=== PATIENT | female | born 1985 | race Caucasian/White ===

== ENCOUNTER 2019-08-02 10:23 | Observation (INO) | payer OTHER, SELFPAY ==
[2019-08-02] VITALS (8 sets, daily range): BP systolic 98–113; BP diastolic 59–71; PULSE 80–104; RESP 16; TEMP 36.2; O2SAT 99
[2019-08-02 11:52] LABS: Add Urine Microscopic? YES; Appearance Urine Cloudy (Clear); Bacteria Urine Trace /hpf; Bilirubin Urine Negative (Negative); Blood Urine 2+ (Negative); Color Urine Yellow (Yellow); Glucose Urine UA Negative (Negative); Ketones Urine Negative (Negative); Leukocyte Esterase Ur 2+ LEU/UL (NEGATIVE); Mucus Urine Rare /lpf; Nitrate Urine Negative (Negative); Protein Urine Negative (Negative); Specific Grav Ur 1.021 (1.001-1.035); Squamous Epithelial Cell Urine Many /hpf (Few)
[2019-08-02] MEDS: LIDOCAINE HCL 1% LOCAL INJ 10 ML VIAL INFILTRATE (12:28)
[2019-08-02] MEDS: cefTRIAXone 250 MG VIAL IM (12:29)
--- NOTE | 2019-08-02 13:22 | P.PNOB_ITS ---
OB - Triage/Final Diagnosis Visit Information Date of evaluation: 08/02/19 Reason for evaluation: threatened labor Evaluation Laboratory results: Laboratory Tests 08/02/19 10:57 Urine Color Yellow Urine Appearance Cloudy H Urine pH 6.0 Ur Specific [place] 1.021 Urine Protein Negative Urine Glucose (UA) Negative Urine Ketones Negative Ur Blood (Man) 2+ H Urine Nitrate Negative Urine Bilirubin Negative Urine Urobilinogen 2.0 H Ur Leukocyte Esterase 2+ H Urine RBC 3-5 H Urine WBC 10-15 H Ur Squamous Epith Cells Many H Urine Bacteria Trace Urine Mucus Rare Vital signs: Vital Signs - 24 hr 08/02/19 10:22 08/02/19 10:45 08/02/19 11:01 Temperature 97.1 F L Pulse Rate 104 H 93 93 Respiratory Rate 16 Blood Pressure 111/65 113/65 98/71 L Pulse Oximetry 99 08/02/19 11:15 08/02/19 11:30 08/02/19 11:45 Temperature Pulse Rate 92 89 86 Respiratory Rate Blood Pressure 113/66 107/63 107/59 L Pulse Oximetry 08/02/19 12:00 08/02/19 12:15 Temperature Pulse Rate 85 80 Respiratory Rate Blood Pressure 102/60 99/61 L Pulse Oximetry
--- NOTE | 2019-08-02 14:17 | OBADM ---
This patient, Priscila Barraza, admitted to the OB room [facility] for observation. Patient/family oriented to hospital policies and general routines including ID bracelet, bed and alarms, visiting hours, pain management, procedures, bathroom and other care routines, personal items, smoking policy, room service/diet, and visiting hours. Patient/Family are encouraged to report perceived risks to care and to ask questions if they do not understand what they are told or what they should do.
--- NOTE | 2019-09-10 08:20 | PM.OBTRLD ---
OB - Triage/Final Diagnosis Visit Information Reason for evaluation: threatened labor Evaluation Laboratory results: Laboratory Tests 08/02/19 10:57 Urine Color Yellow Urine Appearance Cloudy H Urine pH 6.0 Ur Specific [place] 1.021 Urine Protein Negative Urine Glucose (UA) Negative Urine Ketones Negative Ur Blood (Man) 2+ H Urine Nitrate Negative Urine Bilirubin Negative Urine Urobilinogen 2.0 H Ur Leukocyte Esterase 2+ H Urine RBC 3-5 H Urine WBC 10-15 H Ur Squamous Epith Cells Many H Urine Bacteria Trace Urine Mucus Rare
== END 2019-08-02 12:55 | disposition home or self-care (01) ==
PROVIDERS: Admitting Provider Obstetrics & Gynecology; Visit Provider Obstetrics & Gynecology
DX: O47.03 False labor before 37 completed weeks of gestation, third trimester (principal); Z3A.29 29 weeks gestation of pregnancy
CPT/HCPCS: 81001; 87086; 96372; G0378; G0379; J0696

== ENCOUNTER 2019-09-09 19:01 | Observation (INO) | payer OTHER, SELFPAY ==
[2019-09-09 19:15] VITALS: TEMP 37.1
[2019-09-09 19:20] VITALS: BP 111/61; PULSE 107
[2019-09-09 20:34] VITALS: BMI 25.3
[2019-09-09 20:36] VITALS: BP 111/61; PULSE 107
--- NOTE | 2019-09-11 10:21 | PM.OBTRLD ---
OB - Triage/Final Diagnosis Visit Information Date of evaluation: 09/10/19 Reason for evaluation: decreased movement
== END 2019-09-09 20:15 | disposition home or self-care (01) ==
PROVIDERS: Admitting Provider Obstetrics & Gynecology; Visit Provider Obstetrics & Gynecology
DX: O36.8130 Decreased fetal movements, third trimester, not applicable or unspecified (principal); Z3A.35 35 weeks gestation of pregnancy
CPT/HCPCS: 59025; G0378; G0379

== ENCOUNTER 2023-11-22 06:48 | Emergency (ER) | payer OTHER, SELFPAY ==
[2023-11-22 06:52] VITALS: BP 111/70; PULSE 71; RESP 22; TEMP 36.6; O2SAT 100
[2023-11-22 06:57] VITALS: BP 111/70; PULSE 74; RESP 13; O2SAT 100
[2023-11-22 07:01] VITALS: BP 109/79; PULSE 77; RESP 17; O2SAT 97
[2023-11-22 07:04] LABS: Basophils Percent Auto 0.4 % (0.2-1.2); Eosinophils Absolute Auto 0.1 K/mm3 (0-0.3); Eosinophils Percent Auto 1.5 % (0-4.4); Hematocrit 47.2 % (37.0-47.0); Hemoglobin 16.1 g/dL (12.0-15.0); Immature Granulocyte Absolute 0.02 K/mm3 (0.00-0.031); Immature Granulocyte Percent A 0.3 % (0-0.5); Lymphocytes Absolute Auto 2.16 K/mm3 (0.9-3.2); Lymphocytes Percent Auto 32.1 % (18.3-44.2); Mean Corpuscular HGB Conc 34.1 g/dl (32-36); Mean Corpuscular Hemoglobin 30.8 pg (26-34); Mean Corpuscular Volume 90.2 fl (80-100); Monocytes Absolute Auto 0.6 K/mm3 (0.1-0.6); Monocytes Percent Auto 9.5 % (2.6-8.5); Neutrophils Absolute Auto 3.8 K/mm3 (1.3-6.7); Neutrophils Percent Auto 56.2 % (45.5-73.1); Platelet Count Result 226 k/mm3 (150-375); Red Blood Count 5.23 M/mm3 (4.2-5.4); Red Cell Distribution Width 11.9 % (11.5-14.5); White Blood Count 6.7 K/mm3 (4.5-10.0)
[2023-11-22 07:16] LABS: Appearance Urine Turbid (Clear); Bacteria Urine 4+ /hpf; Bilirubin Urine 1+ (Negative); Blood Urine 3+ (Negative); Color Urine Dark Yellow (Yellow); Glucose Urine UA Negative (Negative); Ketones Urine Trace mg/dL (Negative); Leukocyte Esterase Ur 2+ LEU/UL (Negative); Nitrate Urine Positive (Negative); Non Pathogenic Casts 0-2; Protein Urine 3+ mg/dL (Negative); RBC Urine >100 /hpf (0-2); Squamous Epithelial Cell Urine Many /hpf (Few); WBC Urine >100 /hpf (0-3)
[2023-11-22 07:17] VITALS: BP 113/80; PULSE 80; RESP 22; O2SAT 98
--- NOTE | 2023-11-22 07:20 | ED.ABDPAIN ---
HPI - Abdominal Pain General Chief Complaint: Abdominal Pain Stated Complaint: i think i have a kidney infection Time Seen by Provider: 11/22/23 07:00 History of Present Illness HPI narrative: Patient is a 38-year-old female who presents ER with concerns for UTI and possible kidney infection. For last 2 days she has been having dysuria with urinary frequency and urgency. She has noticed the pain going into her left lower quadrant abdomen and some aching in the left low back. She has taken azo without improvement. No fevers or chills or sweats. Related Data Home Medications Medication Instructions Recorded Confirmed norethindrone (contraceptive) 0.35 mg 11/22/23 mg tablet Allergies Allergy/AdvReac Type Severity Reaction Status Date / Time wool Allergy Swelling Verified 11/22/23 06:55 Review of Systems Review of Systems: All systems reviewed & are unremarkable except as noted in HPI and below Constitutional: Constitutional: Reports no additional constitutional complaints ENT: Reports system reviewed and no additional complaints, except as documented Cardiovascular: Cardiovascular: Reports no additional cardiovascular complaints Respiratory: Respiratory: Reports no additional respiratory complaints Gastrointestinal: Gastrointestinal: Reports abdominal pain, Denies nausea and Denies vomiting Genitourinary: Genitourinary: Reports nocturia, Reports dysuria and Reports flank pain PMFSH Past Medical History Medical History (Updated 11/22/23 @ 07:30 by Giles Orozco MD) Healthy female adult Surgical History Surgical History (Updated 11/22/23 @ 07:25 by Giles Orozco MD) No history of previous surgery Exam Narrative: GENERAL: Well-appearing, well-nourished, and in no acute distress. HEAD: Normocephalic, atraumatic. ENT: Mucous membranes moist. CHEST: Clear to auscultation. No respiratory distress. HEART: Regular rate and rhythm. Normal peripheral pulses. ABDOMEN: Soft, nontender, nondistended. No CVA tenderness EXTREMITIES: Normal range of motion. No edema. SKIN: Warm, dry, no rash. NEURO: Alert and oriented x3. PSYCH: Normal mood and affect. Course Course Emergency Course: no CVA tenderness with patient is describing ascending urinary tract infection. Obvious infection in urine. No leukocytosis. Discharge with cefpodoxime. Vital Signs Vital signs: Vital Signs Temperature 98 F 11/22/23 06:52 Pulse Rate 71 11/22/23 06:52 Respiratory Rate 22 H 11/22/23 06:52 Blood Pressure 111/70 11/22/23 06:52 Pulse Oximetry 100 11/22/23 06:52 Oxygen Delivery Room Air 11/22/23 06:52 Temperature 98 F 11/22/23 06:52 Pulse Rate 70 11/22/23 07:46 Respiratory Rate 19 11/22/23 07:46 Blood Pressure 104/66 11/22/23 07:46 Pulse Oximetry 100 11/22/23 07:46 Oxygen Delivery Room Air 11/22/23 06:52 MDM - Abdominal Pain Lab Data 11/22/23 06:59 11/22/23 08:12 Labs: Lab Results 11/22/23 11/22/23 11/22/23 Range/Units 06:58 06:59 08:12 WBC 6.7 (4.5-10.0) K/mm3 RBC 5.23 (4.2-5.4) M/mm3 Hgb 16.1 H (12.0-15.0) g/dL Hct 47.2 H (37.0-47.0) % MCV 90.2 (80-100) fl MCH 30.8 (26-34) pg MCHC 34.1 (32-36) g/dl RDW 11.9 (11.5-14.5) % Plt Count 226 (150-375) k/mm3 MPV 9.0 (7.4-10.4) fl Immature Gran % (Auto) 0.3 (0-0.5) % Neut % (Auto) 56.2 (45.5-73.1) % Lymph % (Auto) 32.1 (18.3-44.2) % [place] % (Auto) 9.5 H (2.6-8.5) % Eos % (Auto) 1.5 (0-4.4) % Baso % (Auto) 0.4 (0.2-1.2) % Lymph # (Auto) 2.16 (0.9-3.2) K/mm3 [place] # (Auto) 0.6 (0.1-0.6) K/mm3 Eos # (Auto) 0.1 (0-0.3) K/mm3 Baso # (Auto) 0.0 (0.0-0.1) K/mm3 Abs Immat Gran (auto) 0.02 (0.00-0.031) K/mm3 Absolute Neuts (auto) 3.8 (1.3-6.7) K/mm3 Absolute Nucleated RBC 0.000 (0.0-0.012) K/mm3 Nucleated RBC % 0.0 (0.0-0.2) % Sodium 138 (137-145)
[2023-11-22 07:25] LABS: Specific Grav Ur 1.031 (1.001-1.035)
[2023-11-22 07:26] LABS: Add Urine Microscopic? YES
[2023-11-22 07:32] VITALS: BP 103/71; PULSE 71; RESP 19; O2SAT 100
[2023-11-22 07:46] VITALS: BP 104/66; PULSE 70; RESP 19; O2SAT 100
--- NOTE | 2023-11-22 08:02 | PC.NURSE ---
Called lab to check on pts CMP, Lavinia states she will check on it.
[2023-11-22 08:42] LABS: Alanine Aminotransferase 13 U/L (6-35); Albumin Level 4.5 g/dL (3.5-5.1); Alkaline Phosphatase 57 U/L (38-126); Anion Gap 5 mmol/L (4-12); Aspartate Amino Transferase 18 U/L (14-36); Blood Urea Nitrogen 14 mg/dL (7-17); Calcium 8.9 mg/dL (8.4-10.2); Carbon Dioxide 26 mmol/L (22-30); Chloride 107 mmol/L (98-107); Estimated CRCL calculation 83 ml/min; Estimated Glomerular Filt Rate > 60; Glucose 98 mg/dL (65-110); Potassium 4.3 mmol/L (3.4-5.0); Sodium 138 mmol/L (137-145)
== END 2023-11-22 09:26 | disposition home or self-care (01) ==
LOC: ANHED 07:48
PROVIDERS: Emergency Medicine; Emergency Provider Emergency Medicine
DX: N12 Tubulo-interstitial nephritis, not specified as acute or chronic (principal)
CPT/HCPCS: 36415; 80053; 81001; 81025; 85025; 87077; 87086; 87088; 87186; 99283